=== PATIENT | male | born 1975 | race Caucasian/White ===

== ENCOUNTER 2020-03-01 18:27 | Outpatient (CLI) | payer OTHER, SELFPAY ==
--- NOTE | ~2020-03-01 | XR_ITS ---
EXAMINATION: XR chest 2V 03/01/2020 19:05 INDICATION: Hypertension PROCEDURE: 2 view chest COMPARISON: No prior studies for comparison. FINDINGS: The lungs are clear. The cardiomediastinal silhouette is within normal limits. There are no pleural effusions. There is no pneumothorax suspected. IMPRESSION: 1: NO ACUTE CARDIOPULMONARY DISEASE. Reviewed, dictated and finalized at location A.
--- NOTE | ~2020-03-01 | XR_ITS ---
XR knee LT 3V 03/01/2020 19:05 Indication: Left knee pain Procedure: 4 views left knee Comparison: No prior studies for comparison. Findings: There is mild osteoarthritis of the knee. No fracture, subluxation or dislocation. No signi ficant joint effusion. No focal soft tissue abnormality. No foreign body. Impression: 1: Mild osteoarthritis of the left knee. Reviewed, dictated and finalized at location A. Impression: 1: Mild osteoarthritis of the left knee.
--- NOTE | ~2020-03-01 | XR_ITS ---
XR foot RT min 3V 03/01/2020 19:05 Indication: Right foot pain. Amputation of the first digit. Procedure: 4 views right foot Comparison: No prior studies for comparison. Findings: There is partial amputation of the right first digit at the metatarsophalangeal joint. Ther e is deformity at the base of the first-fourth metatarsals with mixed ostial lysis and sclerosis. The re are degenerative changes of the second, third and fourth metatarsal phalangeal joints. There is pe riosteal reaction along the second metatarsal shaft. No acute fracture or traumatic malalignment. The re is lateral subluxation of the base of the second metatarsal at the Lisfranc joint. Impression: 1: Deformity of the tarsal metatarsal joints with lateral subluxation of the second metatarsal at the Lisfranc joint. Consider neuropathic joint or infection in the appropriate clinical setting. Reviewed, dictated and finalized at location A. Impression: 1: Deformity of the tarsal metatarsal joints with lateral subluxation of the se cond metatarsal at the Lisfranc joint. Consider neuropathic joint or infection in the appropriate clinical setting.
[2020-03-01 18:49] LABS: Basophils Absolute Auto 0.09 K/mm3 (0.00-0.10); Basophils Percent Auto 0.9 % (0.0-1.0); Eosinophils Absolute Auto 0.38 K/mm3 (0.02-0.50); Eosinophils Percent Auto 3.7 % (1.0-6.0); Hematocrit 39.4 % (40.0-54.0); Hemoglobin 12.6 g/dL (14.0-18.0); Immature Granulocyte Absolute 0.04 K/mm3 (0.00-0.00); Immature Granulocyte Percent A 0.4 % (0.0-0.0); Lymphocytes Absolute Auto 2.32 K/mm3 (1.10-4.50); Lymphocytes Percent Auto 22.4 % (18.0-42.0); Mean Corpuscular Hemoglobin 25.3 pg (27.0-31.0); Mean Platelet Volume 10.5 fl (8.7-11.0); Monocytes Absolute Auto 0.59 K/mm3 (0.10-0.90); Monocytes Percent Auto 5.7 % (2.0-11.0); Neutrophils Absolute Auto 6.9 K/mm3 (1.7-7.2); Neutrophils Percent Auto 66.9 % (50.0-70.0); Platelet Count Result 437 K/mm3 (150-420); Red Blood Count 4.99 M/mm3 (4.70-6.10); Red Cell Distribution Width 13.3 % (11.6-14.4); White Blood Count 10.4 K/mm3 (4.8-10.8)
[2020-03-01 18:50] LABS: Appearance Urine Clear (Clear); Bilirubin Urine Negative (Negative); Color Urine Yellow (Yellow); Glucose Urine UA 3+ (Negative); Ketones Urine Negative (Negative); Leukocyte Esterase Ur Negative (Negative); Nitrate Urine Negative (Negative); Protein Urine Negative (Negative); Urobilinogen Urine 0.2 mg/dL (0.2-1.0)
[2020-03-01 18:52] LABS: Add Urine Microscopic? YES; Bacteria Urine None seen /hpf; Blood Urine Trace-Intact (Negative); RBC Urine None seen /hpf (0-2); Squamous Epithelial Cell Urine Rare /hpf (Few); WBC Urine None seen /hpf (0-3)
[2020-03-01 18:56] LABS: Microalbumin Urine Random 3.6 mg/L
--- NOTE | 2020-03-01 19:00 | ECG_ITS ---
Measurements Intervals [place] Rate: 101 P: 62 VA: 144 QRS: -3 QRSD: 90 T: 48 QT: 339 QTc: 440 Interpretive Statements SINUS TACHYCARDIA BASELINE ARTIFACT- I, III, AVL, AVF, V1-V2 BORDERLINE ECG Electronically Signed On 03-02-2020 8:31:31 CDT by Efrain Moy D.O.
[2020-03-01 19:24] LABS: Alanine Aminotransferase 30 U/L (16-63); Albumin Level 3.9 g/dL (3.4-5.0); Alkaline Phosphatase 57 U/L (46-116); Anion Gap 9 mmol/L (8-16); Aspartate Amino Transferase 16 U/L (15-37); Bilirubin,Total 0.3 mg/dL (0.00-1.00); Blood Urea Nitrogen 24 mg/dL (7-18); Calcium 9.2 mg/dL (8.5-10.1); Carbon Dioxide 28 mmol/L (21-32); Chloride 89 mmol/L (98-108); Cholesterol 274 mg/dL (0-200); Estimated Glomerular Filt Rate 36; HDL Direct 37 mg/dL (40-60); Potassium 4.3 mmol/L (3.5-5.1); Sodium 126 mmol/L (136-145); Thyroid Stimulating Hormone 1.39 uIU/mL (0.36-3.74); Total Protein 8.1 g/dL (6.4-8.2)
[2020-03-01 19:27] LABS: Glucose 577 mg/dL (70-99); LDL Cholesterol Calculated 37 mg/dL (<130); Osmolality Calculated 293 mOsm/kg (285-295); Triglycerides > 1000 mg/dL (0-150)
== END 2020-03-01 18:28 | disposition home or self-care (01) ==
LOC: CHSLAB 18:31
PROVIDERS: PCP Internal Medicine; Visit Provider Internal Medicine
DX: M25.562 Pain in left knee (principal); E11.9 Type 2 diabetes mellitus without complications; A52.16 Charcot's arthropathy (tabetic); I10 Essential (primary) hypertension
CPT/HCPCS: 36415; 71046; 73562; 73630; 80053; 80061; 81001; 82043; 83036; 84443; 85025; 93005

== ENCOUNTER 2020-09-30 09:09 | Outpatient (CLI) | payer OTHER, SELFPAY ==
[2020-09-30 09:29] LABS: Basophils Absolute Auto 0.11 K/mm3 (0.00-0.10); Basophils Percent Auto 1.4 % (0.0-1.0); Eosinophils Absolute Auto 0.38 K/mm3 (0.02-0.50); Hematocrit 40.8 % (40.0-54.0); Hemoglobin 13.1 g/dL (14.0-18.0); Immature Granulocyte Absolute 0.02 K/mm3 (0.00-0.00); Immature Granulocyte Percent A 0.3 % (0.0-0.0); Lymphocytes Absolute Auto 2.18 K/mm3 (1.10-4.50); Lymphocytes Percent Auto 28.5 % (18.0-42.0); Mean Corpuscular HGB Conc 32.1 g/dL (32.0-36.0); Mean Corpuscular Hemoglobin 25.1 pg (27.0-31.0); Mean Corpuscular Volume 78.2 fL (78.0-102.0); Mean Platelet Volume 10.4 fl (8.7-11.0); Monocytes Absolute Auto 0.61 K/mm3 (0.10-0.90); Neutrophils Absolute Auto 4.3 K/mm3 (1.7-7.2); Neutrophils Percent Auto 56.8 % (50.0-70.0); Platelet Count Result 398 K/mm3 (150-420); Red Blood Count 5.22 M/mm3 (4.70-6.10); Red Cell Distribution Width 13.3 % (11.6-14.4); White Blood Count 7.6 K/mm3 (4.8-10.8)
[2020-09-30 10:13] LABS: Hemoglobin A1C 13.3 % (<5.7)
[2020-09-30 10:29] LABS: Alanine Aminotransferase 27 U/L (16-63); Albumin Level 3.8 g/dL (3.4-5.0); Alkaline Phosphatase 44 U/L (46-116); Anion Gap 10 mmol/L (8-16); Aspartate Amino Transferase 14 U/L (15-37); Bilirubin,Total 0.5 mg/dL (0.00-1.00); Blood Urea Nitrogen 17 mg/dL (7-18); Calcium 9.2 mg/dL (8.5-10.1); Carbon Dioxide 28 mmol/L (21-32); Chloride 99 mmol/L (98-108); Cholesterol 170 mg/dL (0-200); Estimated Glomerular Filt Rate 45; Glucose 235 mg/dL (70-99); HDL Direct 42 mg/dL (40-60); LDL Cholesterol Calculated 83 mg/dL (<130); Osmolality Calculated 293 mOsm/kg (285-295); Potassium 4.1 mmol/L (3.5-5.1); Sodium 137 mmol/L (136-145); Total Protein 7.3 g/dL (6.4-8.2); Triglycerides 227 mg/dL (0-150)
== END 2020-09-30 09:10 | disposition home or self-care (01) ==
LOC: CHSLAB 09:10
PROVIDERS: PCP Internal Medicine; Visit Provider Internal Medicine
DX: E11.9 Type 2 diabetes mellitus without complications (principal); I10 Essential (primary) hypertension
CPT/HCPCS: 36415; 80053; 80061; 83036; 85025

== ENCOUNTER 2021-02-14 17:26 | Emergency (ER) | payer OTHER, SELFPAY ==
--- NOTE | ~2021-02-14 | XR_ITS ---
EXAMINATION: XR shoulder LT min 2V DATE: 02/14/2021 19:21 INDICATION: Posterior left shoulder pain post injury 2 days prior TECHNIQUE: AP internally and externally rotated, AP oblique externally rotated and transscapular Y vi ews of the left shoulder were obtained. COMPARISON: None FINDINGS: Normal alignment. No fracture. Glenohumeral joint is normal. Moderate acromioclavicular osteoarthrit is. Soft tissues are unremarkable. Visualized portions of the lungs are clear. IMPRESSION: Moderate left acromioclavicular osteoarthritis. No acute osseous abnormality. Reviewed, dictated and finalized at location A.
--- NOTE | ~2021-02-14 | XR_ITS ---
EXAMINATION: XR foot RT min 3V DATE: 02/14/2021 19:21 INDICATION: Right foot infection TECHNIQUE: Dorsoplantar, two oblique and lateral views of the right foot were obtained. COMPARISON: None. FINDINGS: Indentation of the right great toe across the metatarsophalangeal joint. No acute fracture. Stable ap pearance of chronic osteolysis versus osteotomies at the heads of the third and fourth metatarsals. D eformity at the head and neck of the second metatarsal which could represent sequela of prior fractur e or osteotomy. Relatively stable appearance of advanced arthritic changes with osteolysis and increa sed sclerosis across the tarsometatarsal joints most likely related to Charcot arthropathy with diffe rential including chronic osteomyelitis. No new erosions or osteolysis to suggest acute osteomyelitis . Soft tissue gas is seen in the plantar subcutaneous tissues at the level of the midfoot on the late ral image and medial to the neck of the first metatarsal on the dorsal plantar projection. Benign-jackie earing periosteal reaction along the distal fibular diaphysis which could be due to either old fractu re/stress injury or potentially venous stasis small Achilles and plantar calcaneal spurs. IMPRESSION: 1. Soft tissue gas in the subcutaneous tissues at the plantar aspect of the midfoot and medial to the neck of the first metatarsal. Correlate for skin laceration or ulceration. Was not present this woul d raise concern for necrotizing fasciitis. 2. 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 No findings to suggest acute osteo myelitis. 3. Stable appearance of chronic postoperative versus posttraumatic changes in the forefoot as detaile d above. Reviewed, dictated and finalized at location A. IMPRESSION: 1. Soft tissue gas in the subcutaneous tissues at the plantar aspect of the mid foot and medial to the neck of the first metatarsal. Correlate for skin lacerat ion or ulceration. Was not present this would raise concern for necrotizing fas ciitis. 2. Stable appearance of advanced arthritis at the tarsometatarsal joints most l ikely neuropathic/Charcot arthropathy with differential including chronic osteo myelitis. No findings to suggest acute osteomyelitis. 3. Stable appearance of chronic postoperative versus posttraumatic changes in t he forefoot as detailed above.
--- NOTE | 2021-02-14 18:24 | ED.EXTPRO ---
HPI - Extremity Problem General Chief complaint: Extremity Injury, Lower Stated complaint: shoulder pain, R foot pain Time Seen by Provider: 02/14/21 18:30 Source: patient Mode of arrival: ambulatory Limitations: no limitations History of Present Illness HPI Narrative: 45-year-old man comes in today complaining of left shoulder pain with movement and right foot redness and swelling. Patient states his right shoulder pain started after he chopped down a tree and then his left arm was yanked while trying to walk her dog. She states the pain is worse when he puts his elbow on an armrest. Patient states for the last few days his right foot has been having increased redness and swelling. He sees a online merchandising specialist for chronic diabetic ulcer on that foot. 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 He denies fever, nausea, vomiting, night sweats, purulent drainage, bleeding, and weakness. He was scheduled to see his ankle and online merchandising specialist today however his shoulder pain intervened. He was prescribed clindamycin today. MD Complaint: extremity pain and extremity swelling Onset (ago): day(s) Pain Consistency: intermittent Location: upper extremity (Left) and lower extremity (Right) Quality: aching and sharp Radiation: none Relieving factors: nothing Exacerbating factors: other (As above) Associated symptoms: denies other symptoms Related Data Allergies Allergy/AdvReac Type Severity Reaction Status Date / Time No Known Allergies Allergy Verified 02/14/21 18:48 Review of Systems Review of Systems: All systems reviewed & are unremarkable except as noted in HPI and below Constitutional: Constitutional: Denies chills and Denies fever(s) ENT: Denies nasal congestion and Denies sore throat Cardiovascular: Cardiovascular: Denies chest pain and Denies radiating jaw, neck or arm pain Respiratory: Respiratory: Denies cough and Denies dyspnea Gastrointestinal: Gastrointestinal: Denies abdominal pain, Denies nausea and Denies vomiting Genitourinary: Genitourinary: Denies dysuria and Denies urinary frequency Musculoskeletal: Musculoskeletal: Reports as per HPI, Denies back pain and Reports joint swelling Integumentary/Breasts: Skin/Breast: Reports as per HPI, Denies pruritus, Reports erythema and Denies rash Neurologic: Denies vertigo, Denies dizziness, Denies syncope, Denies focal weakness and Reports numbness (Right hand, chronic) Hematologic/Lymphatic: Hematologic/Lymphatic: Denies easy bleeding and Denies easy bruising Allergic/Immunologic: Allergic/Immunologic: Denies lip swelling and Denies throat swelling [facility] Past Medical History Medical History (Updated 02/14/21 @ 18:51 by Ezekiel Galloway MD) History of amputation of hallux Hyperlipidemia Hypertension Type 2 diabetes mellitus Surgical History Surgical History (Updated 02/14/21 @ 18:46 by Ezekiel Gallowya MD) H/O hernia repair Social History Social History Gender identity (if verbalized by the patient): Female Exam Const: General: no acute distress and alert Nutritional Appearance: obese Orientation/consciousness: patient oriented x3 Limitations: no limitations HENMT: Mouth: Yes moist mucous membranes Eyes: Conjunctivae: conjunctivae normal Pupils: Equal, round and reactive pupils present EOM: EOMs intact bilaterally Resp: Effort & Inspection: normal respiratory effort and not labored Auscultation: clear to auscultation bilaterally, no rales, no rhonchi and no wheezes Cardio: Rate: regular rate Rhythm: regular rhythm Heart sounds: no murmurs GI: GI Palp: Yes Soft to palpation and No Tenderness to palpation present (GI) Skin: General skin exam: normal color, no jaundice and no pallor Rashes: no rashes Other: 2 cm ulceration on arch of the right foot without drainage. There is a 3 x 4 cm area of necrotic tissue on the ball of the right foot that is draining serous fluid and has surrounding erythema and warmth. No lymphangitis is prese
[2021-02-14 18:40] VITALS: BP 115/74; PULSE 115; RESP 20; TEMP 37.2; O2SAT 93
[2021-02-14 19:01] LABS: Basophils Absolute Auto 0.05 K/mm3 (0.00-0.10); Basophils Percent Auto 0.3 % (0.0-1.0); Eosinophils Absolute Auto 0.07 K/mm3 (0.02-0.50); Eosinophils Percent Auto 0.5 % (1.0-6.0); Hematocrit 36.3 % (40.0-54.0); Hemoglobin 11.5 g/dL (14.0-18.0); Immature Granulocyte Absolute 0.09 K/mm3 (0.00-0.00); Immature Granulocyte Percent A 0.6 % (0.0-0.0); Lymphocytes Percent Auto 5.6 % (18.0-42.0); Mean Corpuscular HGB Conc 31.7 g/dL (32.0-36.0); Mean Corpuscular Hemoglobin 24.8 pg (27.0-31.0); Mean Corpuscular Volume 78.4 fL (78.0-102.0); Mean Platelet Volume 9.9 fl (8.7-11.0); Monocytes Absolute Auto 1.09 K/mm3 (0.10-0.90); Monocytes Percent Auto 7.6 % (2.0-11.0); Neutrophils Absolute Auto 12.3 K/mm3 (1.7-7.2); Neutrophils Percent Auto 85.4 % (50.0-70.0); Platelet Count Result 446 K/mm3 (150-420); Red Blood Count 4.63 M/mm3 (4.70-6.10); Red Cell Distribution Width 13.1 % (11.6-14.4); White Blood Count 14.4 K/mm3 (4.8-10.8)
[2021-02-14] MEDS: HYDROcodone/acetaminophen (*CRX) 5-325 MG TABLET 1 TAB PO (19:01)
[2021-02-14 19:20] LABS: Lactic Acid Reflex 0.9 mmol/L (0.4-2.0)
[2021-02-14 19:23] LABS: Alanine Aminotransferase 19 U/L (16-63); Alkaline Phosphatase 50 U/L (46-116); Anion Gap 10 mmol/L (8-16); Aspartate Amino Transferase 13 U/L (15-37); Bilirubin,Total 0.5 mg/dL (0.00-1.00); Blood Urea Nitrogen 30 mg/dL (7-18); Calcium 8.7 mg/dL (8.5-10.1); Carbon Dioxide 26 mmol/L (21-32); Chloride 94 mmol/L (98-108); Estimated CRCL calculation 55 ml/min; Estimated Glomerular Filt Rate 35; Glucose 315 mg/dL (70-99); Osmolality Calculated 288 mOsm/kg (285-295); Potassium 4.4 mmol/L (3.5-5.1); Sodium 130 mmol/L (136-145); Total Protein 8.3 g/dL (6.4-8.2)
[2021-02-14 19:28] LABS: CRP > 10.6 mg/dL (0.0-0.9)
[2021-02-14] MEDS: SODIUM CHLORIDE 0.9% IV 1,000 ML 999 ML IV CONT (19:55)
[2021-02-14] MEDS: CLINDAMYCIN 600 MG/D5W 50 ML 600 MG/50 ML PIGGYBACK 100 MG IVPB (19:56)
[2021-02-14 20:01] LABS: Erythrocyte Sedimentation Rate 53 mm/hr (0-15)
[2021-02-14 20:58] VITALS: BP 119/76; PULSE 101; RESP 20; TEMP 37.6; O2SAT 95
== END 2021-02-14 21:00 | disposition home or self-care (01) ==
PROVIDERS: Emergency Provider Emergency Medicine; PCP Internal Medicine
DX: S46.912A Strain of unspecified muscle, fascia and tendon at shoulder and upper arm level, left arm, initial encounter (principal); E11.621 Type 2 diabetes mellitus with foot ulcer; L03.115 Cellulitis of right lower limb
CPT/HCPCS: 36415; 73030; 73630; 80053; 83605; 85025; 85652; 86140; 87040; 87147; 96365; 99283; 99284; A9270; J7030

== ENCOUNTER 2021-09-15 13:48 | Outpatient (CLI) | payer OTHER, SELFPAY ==
--- NOTE | ~2021-09-15 | XR_ITS ---
EXAMINATION: XR tibia fibula RT 2V DATE: 09/15/2021 14:41 INDICATION: Infection at the right lobyq-ada-eosj amputation stump TECHNIQUE: AP and lateral views of the right tibia/fibula were obtained. COMPARISON: None. FINDINGS: Change of a right ohtcb-vys-xigs amputation. There are sharp distal osteotomy margins of both the tib ia and fibula. There is mild periosteal reaction along the distal remaining diaphyses but no evident osteolysis to suggest more specifically suggest osteomyelitis. No soft tissue gas or radiopaque forei gn bodies. Alignment is normal. No fracture. Joint spaces appear normal at the right knee on nonweigh tbearing imaging. Small enthesophytes at the upper pole of the patella and anterior tibial tuberosity . No right knee joint effusion. IMPRESSION: 1. Expected appearance post right zufha-dpy-yjda amputation with no evident osteomyelitis or soft tis [place] gas. Reviewed, dictated and finalized at location A. 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 Expected appearance post right adcmf-dnx-dtma amputation with no evident ost eomyelitis or soft tissue gas.
== END 2021-09-15 13:49 | disposition home or self-care (01) ==
LOC: CHSIMG 13:49
PROVIDERS: PCP Internal Medicine; Visit Provider Internal Medicine
DX: L08.9 Local infection of the skin and subcutaneous tissue, unspecified (principal)
CPT/HCPCS: 73590

== ENCOUNTER 2022-02-02 11:40 | Outpatient (CLI) | payer OTHER, SELFPAY ==
[2022-02-02 11:53] LABS: Basophils Absolute Auto 0.08 K/mm3 (0.00-0.10); Basophils Percent Auto 1.3 % (0.0-1.0); Eosinophils Absolute Auto 0.32 K/mm3 (0.02-0.50); Eosinophils Percent Auto 5.1 % (1.0-6.0); Hematocrit 36.5 % (40.0-54.0); Hemoglobin 11.6 g/dL (14.0-18.0); Immature Granulocyte Absolute 0.02 K/mm3 (0.00-0.00); Immature Granulocyte Percent A 0.3 % (0.0-0.0); Lymphocytes Absolute Auto 1.65 K/mm3 (1.10-4.50); Lymphocytes Percent Auto 26.3 % (18.0-42.0); Mean Corpuscular HGB Conc 31.8 g/dL (32.0-36.0); Mean Corpuscular Hemoglobin 25.7 pg (27.0-31.0); Mean Corpuscular Volume 80.8 fL (78.0-102.0); Mean Platelet Volume 10.3 fl (8.7-11.0); Monocytes Absolute Auto 0.65 K/mm3 (0.10-0.90); Monocytes Percent Auto 10.4 % (2.0-11.0); Neutrophils Absolute Auto 3.6 K/mm3 (1.7-7.2); Neutrophils Percent Auto 56.6 % (50.0-70.0); Platelet Count Result 430 K/mm3 (150-420); Red Blood Count 4.52 M/mm3 (4.70-6.10); White Blood Count 6.3 K/mm3 (4.8-10.8)
[2022-02-02 12:05] LABS: Hemoglobin A1C 9.3 % (<5.7)
[2022-02-02 12:08] LABS: Alanine Aminotransferase 29 U/L (16-63); Albumin Level 3.9 g/dL (3.4-5.0); Alkaline Phosphatase 43 U/L (46-116); Anion Gap 11 mmol/L (8-16); Aspartate Amino Transferase 25 U/L (15-37); Bilirubin,Total 0.3 mg/dL (0.00-1.00); Blood Urea Nitrogen 78 mg/dL (7-18); Calcium 8.7 mg/dL (8.5-10.1); Carbon Dioxide 25 mmol/L (21-32); Chloride 101 mmol/L (98-108); Cholesterol 170 mg/dL (0-200); Estimated Glomerular Filt Rate 13; Glucose 163 mg/dL (70-99); HDL Direct 40 mg/dL (40-60); LDL Cholesterol Calculated 86 mg/dL (<130); Osmolality Calculated 311 mOsm/kg (285-295); Potassium 4.5 mmol/L (3.5-5.1); Sodium 137 mmol/L (136-145); Total Protein 8.1 g/dL (6.4-8.2); Triglycerides 221 mg/dL (0-150)
== END 2022-02-02 11:41 | disposition home or self-care (01) ==
LOC: CHSLAB 11:41
PROVIDERS: PCP Internal Medicine; Visit Provider Internal Medicine
DX: E11.65 Type 2 diabetes mellitus with hyperglycemia (principal); I10 Essential (primary) hypertension
CPT/HCPCS: 36415; 80053; 80061; 83036; 85025

== ENCOUNTER 2022-02-15 08:11 | Outpatient (CLI) | payer OTHER, SELFPAY ==
--- NOTE | ~2022-02-15 | US_ITS ---
US renal BI 02/15/2022 09:21 Procedure: Realtime transabdominal ultrasound of the kidneys and bladder. Indication: Acute on chronic renal failure Comparison: No prior studies for comparison. Findings: Renal echotexture is normal bilaterally without hydronephrosis, contour deforming mass or r enal calculus. The right kidney measures 12 cm and left kidney measures 12.6 cm. Bladder within norm al limits. Impression: 1: Unremarkable renal ultrasound. No stones, masses or hydronephrosis. Reviewed, dictated and finalized at location A. Impression: 1: Unremarkable renal ultrasound. No stones, masses or hydronephrosis.
--- NOTE | ~2022-02-15 | XR_ITS ---
EXAMINATION:XR_CERV2-3V_CR DATE: 02/15/2022 09:03 INDICATION: Chronic posterior neck pain TECHNIQUE: AP, lateral, lateral swimmers and odontoid views of the cervical spine are provided. COMPARISON: None FINDINGS: There are 2 mm of anterolisthesis of C4 on C5. The odontoid is intact. No fracture is ident ified. Vertebral body heights and disk spaces are normal. Prevertebral soft tissues are normal. IMPRESSION: 1. Mild cervical spondylosis without acute findings. Reviewed, dictated and finalized at location A.
== END 2022-02-15 08:12 | disposition home or self-care (01) ==
LOC: CHSIMG 08:13
PROVIDERS: PCP Internal Medicine; Visit Provider Internal Medicine
DX: M54.2 Cervicalgia (principal); N18.9 Chronic kidney disease, unspecified
CPT/HCPCS: 72040; 76775

== ENCOUNTER 2022-04-09 10:33 | Outpatient (CLI) | payer OTHER, SELFPAY ==
--- NOTE | ~2022-04-09 | MR_ITS ---
EXAMINATION: MR lower leg RT wo con DATE: 04/09/2022 12:02 INDICATION: Stump infection at a right vayxn-htz-hahp amputation. TECHNIQUE: Magnetic resonance imaging (MRI) of the right lower leg was performed without intravenous contrast. Sequences included axial, sagittal and coronal fluid sensitive FSE STIR and T1-weighted FSE . COMPARISON: Radiographs dated 09/15/2021 FINDINGS: Stopper change of a right hxhzd-wbz-ujhg amputation. There is fatty atrophy of the musculature at the remaining right lower leg. There is soft tissue swelling with edema along the distal anterior margin of the stump. There is a 1.8 x 1.2 x 0.7 cm fluid collection positioned over the anteromedial side o f the tibial osteotomy margin. The fluid collection remains separate by approximately 5 mm from the s uperficial margin of the bone. No cortical erosion the osteotomy margin appears to remain relatively smooth and sharply defined. There is no loss of T1 marrow fat signal along the osteotomy margin to valente ggest osteomyelitis. No fracture or other pathologic marrow replacing process. Normal alignment at th e left knee. There is lateral extrusion of the lateral meniscal body with mild to moderate joint spac e narrowing at the lateral compartment. Physiologic amount fluid at the right knee joint. The anterio r and posterior cruciate ligaments as well as the medial and fibular collateral ligaments are normal. The extensor mechanism and the visualized portions of the iliotibial band and medial and lateral ham string tendons are normal. IMPRESSION: 1. Right kpwql-acz-ctml amputation with no findings to suggest osteomyelitis. 2. Small loculated fluid collection with some surrounding soft tissue swelling and edema along the an teromedial margin of the distal tibial osteotomy margin. Differential would include bursitis, hematom a or abscess in the appropriate clinical setting. Reviewed, dictated and finalized at location A. IMPRESSION: 1. Right vuhfn-lgn-opvo amputation with no findings to suggest osteomyelitis. 2. Small loculated fluid collection with some surrounding soft tissue swelling and edema along the anteromedial margin of the distal tibial osteotomy margin. Differential would include bursitis, hematoma or abscess in the appropriate cli nical setting.
== END 2022-04-09 10:34 | disposition home or self-care (01) ==
LOC: CHSIMG 10:34
PROVIDERS: PCP Internal Medicine; Visit Provider Internal Medicine
DX: N28.9 Disorder of kidney and ureter, unspecified (principal); B99.8 Other infectious disease
CPT/HCPCS: 73718

== ENCOUNTER 2022-05-07 10:58 | Outpatient (CLI) | payer OTHER, SELFPAY ==
--- NOTE | ~2022-05-07 | XR_ITS ---
EXAM: XR lumbar spine 2-3V DATE: 05/07/2022 11:18 HISTORY: L 1-2 radiculopahty pain in right hip . COMPARISON: None available. FINDINGS: 5 nonrib-bearing lumbar-type vertebral bodies. Mild anterior wedge deformity at L1. Remain ing vertebral body heights are maintained. 3 mm anterolisthesis at L5-S1. Mild disc space narrowing i n the lower lumbar spine. Anterior osteophyte at L4. Possible pars defects at L5. Mild multilevel fac et hypertrophy and sclerosis. Unfused posterior L5 arch. Seminal vesicle calcification as can be seen with diabetes. Multiple pelvic phleboliths. Surgical magdi over the right lower quadrant. IMPRESSION: Mild anterior wedge deformity at L1, of uncertain age. Possible pars defects at L5, consi dawn oblique views of the lumbar spine for further evaluation. Grade 1 anterolisthesis at L5-S1. Multi level degenerative disc disease and facet arthropathy. Reviewed, dictated and finalized at location K. IMPRESSION: Mild anterior wedge deformity at L1, of uncertain age. Possible par s defects at L5, consider oblique views of the lumbar spine for further evaluat ion. Grade 1 anterolisthesis at L5-S1. Multilevel degenerative disc disease and facet arthropathy.
== END 2022-05-07 10:59 | disposition home or self-care (01) ==
LOC: CHSIMG 11:00
PROVIDERS: PCP Internal Medicine; Visit Provider Internal Medicine
DX: M54.17 Radiculopathy, lumbosacral region (principal)
CPT/HCPCS: 72100

== ENCOUNTER 2022-05-17 16:32 | Outpatient (CLI) | payer OTHER, SELFPAY ==
--- NOTE | ~2022-05-17 | MR_ITS ---
EXAMINATION: MR lumbar spine wo con DATE: 05/17/2022 17:23 INDICATION: Low back pain. L1 compression fracture. TECHNIQUE: Magnetic resonance imaging (MRI) of the lumbar spine was performed without intravenous con trast. COMPARISON: Lumbar spine radiographs 05/07/2022 FINDINGS: Bone alignment is normal. There is a chronic compression fracture of L1 with 2/5 loss of he ight centrally. There are chronic bilateral L5 pars defects. Intervertebral disc heights are normal. The distal spinal cord signal intensity is normal. The conus medullaris is at T12-L1. The following d isc levels are specifically discussed: L1-L2: The disc does not extend beyond the endplate margin. There is no facet joint osteoarthritis. T here is no neural foraminal stenosis. There is no central canal stenosis. L2-L3: The disc does not extend beyond the endplate margin. There is mild bilateral facet joint osteo arthritis. There is no neural foraminal stenosis. There is no central canal stenosis. L3-L4: The disc does not extend beyond the endplate margin. There is no facet joint osteoarthritis. T here is no neural foraminal stenosis. There is no central canal stenosis. L4-L5: There is a central protrusion. There is no facet joint osteoarthritis. There is mild bilateral neural foraminal stenosis. There is mild central canal stenosis. L5-S1: The disc does not extend beyond the endplate margin. There is no facet joint osteoarthritis. T here is no neural foraminal stenosis. There is no central canal stenosis. IMPRESSION: 1. Mild lumbar spondylosis. 2. Chronic bilateral L5 pars defects. Reviewed, dictated and finalized at location A. [employer]JACK [employer]OSS
== END 2022-05-17 16:33 | disposition home or self-care (01) ==
LOC: CHSIMG 16:33
PROVIDERS: PCP Internal Medicine; Visit Provider Internal Medicine
DX: M48.56XD Collapsed vertebra, not elsewhere classified, lumbar region, subsequent encounter for fracture with routine healing (principal)
CPT/HCPCS: 72148

== ENCOUNTER 2024-01-10 13:37 | Outpatient (CLI) | payer OTHER, SELFPAY ==
--- NOTE | ~2024-01-10 | XR_ITS ---
EXAMINATION: XR chest 2V Exam Date/Time: 01/10/2024 13:50 CDT HISTORY: Current smoker/No chest complaints Comparison: 03/01/2020. RESULT: Lines, tubes, and devices: None. Lungs and pleura: Clear. Cardiomediastinal silhouette: Stable. Other: No acute osseous or upper abdominal finding. IMPRESSION: No acute cardiopulmonary process. Reviewed, dictated and finalized at location K.
[2024-01-10 14:54] LABS: Hematocrit 34.7 % (40.0-54.0); Hemoglobin 11.4 g/dL (14.0-18.0); Mean Corpuscular HGB Conc 32.9 g/dL (32-36); Mean Corpuscular Hemoglobin 24.9 pg (27.0-31.0); Mean Corpuscular Volume 75.9 fL (78.0-102.0); Platelet Count Result 398 K/mm3 (150-420); Red Blood Count 4.57 M/mm3 (4.70-6.10); White Blood Count 9.2 K/mm3 (4.8-10.8)
[2024-01-10 15:14] LABS: Albumin Level 2.4 g/dL (3.4-5.0); Alkaline Phosphatase 63 U/L (46-116); Anion Gap 10 mmol/L (4-12); Aspartate Amino Transferase 12 U/L (15-37); Bilirubin,Total 0.2 mg/dL (0.00-1.00); Blood Urea Nitrogen 26 mg/dL (7-18); CRP 0.8 mg/dL (0.0-0.9); Calcium 7.2 mg/dL (8.5-10.1); Carbon Dioxide 27 mmol/L (21-32); Chloride 102 mmol/L (98-108); Cholesterol 207 mg/dL (0-200); Estimated Glomerular Filt Rate 20; Free T3 1.82 pg/mL (2.18-3.98); Free T4 Free Thyroxine 0.86 ng/dL (0.76-1.46); Glucose 237 mg/dL (70-99); HDL Direct 38 mg/dL (40-60); LDL Cholesterol Calculated 96 mg/dL (<130); Osmolality Calculated 300 mOsm/kg (285-295); Potassium 2.6 mmol/L (3.5-5.1); Sodium 139 mmol/L (136-145); Thyroid Stimulating Hormone 3.14 uIU/mL (0.36-3.74); Total Protein 6.5 g/dL (6.4-8.2); Triglycerides 367 mg/dL (0-150)
[2024-01-10 15:37] LABS: Alanine Aminotransferase < 6 U/L (16-63)
[2024-01-10 17:06] LABS: Appearance Urine Clear (Clear); Bilirubin Urine Negative (Negative); Blood Urine 2+ (Negative); Color Urine Light Yellow (Yellow); Glucose Urine UA 2+ (Negative); Ketones Urine Negative (Negative); Leukocyte Esterase Ur Negative (Negative); Nitrate Urine Negative (Negative); Protein Urine 3+ (Negative); Urobilinogen Urine 0.2 mg/dL (0.2-1.0)
[2024-01-10 17:14] LABS: Hemoglobin A1C 8.8 % (<5.7)
[2024-01-10 17:18] LABS: Creatinine Urine 78.34 mg/dL (40-278)
[2024-01-10 17:28] LABS: MALB Creatinine Ratio 510.5 mg/g (0-30); Microalbumin Urine Random > 400.0 mg/L
[2024-01-10 17:46] LABS: Add Urine Microscopic? YES
== END 2024-01-10 13:38 | disposition home or self-care (01) ==
LOC: CHSLAB 13:39
PROVIDERS: PCP Internal Medicine; Visit Provider Internal Medicine
DX: E11.9 Type 2 diabetes mellitus without complications (principal); I73.9 Peripheral vascular disease, unspecified; R63.4 Abnormal weight loss
CPT/HCPCS: 36415; 71046; 80053; 80061; 81001; 82043; 83036; 84439; 84443; 84481; 85027; 86140